=== PATIENT | male | born 1990 | race Caucasian/White ===

== ENCOUNTER 2020-10-19 12:26 | Inpatient (IN) | payer OTHER, SELFPAY ==
[2020-10-19 12:31] VITALS: BP 144/80; PULSE 82; RESP 18; TEMP 36.6; O2SAT 97; BMI 27.8
[2020-10-19 15:03] LABS: MANUAL DIFF FLAG NO
[2020-10-19 15:04] LABS: Basophils Absolute Auto 0.1 X10*3/uL (0.0-0.2); Basophils Percent Auto 0.4 % (0-2); Eosinophils Absolute Auto 0.1 X10*3/uL (0.0-0.4); Eosinophils Percent Auto 0.6 % (0-4); Hematocrit 48.9 % (42-52); Hemoglobin 16.2 g/dl (14.0-18.0); Imm Gran Abs Auto 0.05 X10*3/uL (0.00-0.03); Imm Gran Pct Auto 0.4 % (0.0-0.4); Lymphocytes Absolute Auto 1.6 X10*3/uL (1.2-4.9); Lymphocytes Percent Auto 13.5 % (20-40); Mean Corpuscular HGB Conc 33.1 g/dl (31.0-36.0); Mean Corpuscular Volume 87.6 fL (80-98); Mean Platelet Volume 9.8 fL (9.4-12.4); Monocytes Absolute Auto 0.6 X10*3/uL (0.1-1.2); Monocytes Percent Auto 5.3 % (2-11); Neutrophils Absolute Auto 9.4 X10*3/uL (2.0-8.3); Neutrophils Percent Auto 79.8 % (45-73); Platelet Count 283 X10*3/uL (160-400); Red Blood Count 5.58 X10*6/uL (4.60-5.80); Red Cell Distribution Width 12.2 % (11.0-16.0); White Blood Count 11.7 X10*3/uL (4.8-10.8)
[2020-10-19 15:08] LABS: Glucose Urine UA NEG (NEG); Leukocyte Esterase Urine NEG (NEG); Nitrite Urine NEG (NEG); Specific Gravity - Urine 1.025 (1.005-1.025); Urine Blood NEG (NEG); Urine Ketones 5 MG/DL (NEG); Urine Protein NEG (NEG-TRACE)
[2020-10-19 15:09] LABS: Appearance Urine CLEAR; Color Urine YELLOW
[2020-10-19 15:20] LABS: RBC Urine 0 /HPF (0); WBC Urine 0 /HPF (0-4)
--- NOTE | 2020-10-19 15:20 | PC.NURSE ---
CARE TEAM MEETING WITH PATIENT.
[2020-10-19 15:29] LABS: Ethanol < 10 mg/dL
[2020-10-19 15:32] LABS: Magnesium 2.2 mg/dL (1.6-2.6)
[2020-10-19 15:33] LABS: Alanine Aminotransferase 25 U/L (0-40); Albumin Level 4.7 g/dL (3.5-5.0); Alkaline Phosphatase 77 U/L (39-117); Anion Gap 15 (12-20); Aspartate Amino Transferase 17 U/L (5-37); Bilirubin Total 2.1 mg/dL (0.0-1.0); Blood Urea Nitrogen 15 mg/dL (9-16); Calcium 9.5 mg/dL (8.4-10.2); Carbon Dioxide 24 mmol/L (22-29); Chloride 105 mmol/L (96-108); Creatinine Clr Calc Pharmacy 121.8; Estimated Glomerular Filt Rate > 60; Glucose Random 91 mg/dL (60-115); Potassium 4.2 mmol/L (3.3-5.1); Sodium 140 mmol/L (135-145); Total Protein 7.2 g/dL (6.5-8.0)
[2020-10-19 15:34] LABS: Amphetamine Screen Urine Not Detected (Not Detect); Barbiturates, Urine Not Detected (Not Detect); Benzodiazepines Screen Urine Not Detected (Not Detect); Cannabinoid Screen Urine Not Detected (Not Detect); Cocaine Screen Urine Not Detected (Not Detect); Opiate Screen Urine Not Detected (Not Detect); Phencyclidine Screen Urine Not Detected (Not Detect)
[2020-10-19 15:54] LABS: Thyroid Stimulating Hormone 0.55 uIU/mL (0.32-4.0)
--- NOTE | 2020-10-19 17:21 | PC.NURSE ---
PT ambulated to pod with steady gait, calm and cooperative, pleasant in conversation. PT is inpatient bedsearch.
--- NOTE | 2020-10-19 17:26 | ED_ITS ---
HPI - Anxiety General Chief Complaint: Anxiety Stated Complaint: anxiety Time Seen by Provider: 10/19/20 14:34 Source: patient Mode of arrival: ambulatory Limitations: no limitations History of Present Illness HPI narrative: Pleasant 30-year-old male presenting ambulatory via triage with his mother He denies any past medical or surgical history Denies any psychiatric history Denies any illicit drug use Denies any alcohol or smoking He presents today with complaint of having a racing thoughts feeling anxious and having impulsive suicidal ideations States he has been having hard time sleeping he will wake up with panic attacks States he has high functional 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 States he subsequently went to [facility] he was in the waiting room due to long wait time he would therefore +hours but he left Yesterday called his primary care doctor had a tele visit the through [facility] He was prescribed hydroxyzine 10 mg for bedtime States this helped a little made him sleepy however his symptoms of panic attacks and thoughts of SI continued. States he is only concerned because he has never had these symptoms before Familial history of uncle with bipolar however father and grandparents do not have any history There is history of thyroid disease in the family He himself denies any weight loss or weight gain no changes in appetite though he does feel that he is drinking slightly more water for past 4 days or so. complaint: anxiety Place: home History of similar episodes: No Provoking factors: emotional stress and work/job stress Exacerbating factors: nothing Associated symptoms: denies other symptoms Related Data Home Medications Medication Instructions Recorded Confirmed hydroxyzine HCl 1 tab PO BEDTIME 10/19/20 10/19/20 Allergies Allergy/AdvReac Type Severity Reaction Status Date / Time No Known Allergies Allergy Verified 10/19/20 14:34 Review of Systems Review of Systems: Constitutional: No Weight loss, No Fever, No Chills, No Night Sweats, No Fatigue, No Malaise ENT/Mouth: No Hearing loss, No Ear Pain, No Nasal Congestion, No Sinus Pain, No Hoarseness, No sore throat, No Rhinorrhea, No Swallowing Difficulty Eyes: No Eye Pain, No Swelling, No Redness, No Foreign Body, No Discharge, No Vision Changes Cardiovascular: No Chest Pain, No SOB, No Dyspnea on Exertion, No Orthopnea, No Edema, No Palpitations Respiratory: No Cough, No Sputum, No Wheezing, No Smoke Exposure, No Dyspnea Gastrointestinal: No Nausea, No Vomiting, No Diarrhea, No Constipation, No abdominal Pain, No Hematochezia, No Melena Genitourinary: no irregular bleeding, No Dysuria, No Urinary Frequency, No Hematuria, No Urinary Incontinence, No Urgency, No Flank Pain, No Urinary Flow Changes, No Hesitancy Musculoskeletal: No joint pain, No Myalgias, No Joint Swelling Skin: No Skin Lesions, No rash Neuro: No Weakness, No Numbness, No Paresthesias, No Loss of Consciousness, No Dizziness, No Headache Psych: As noted per HPI Heme/Lymph: No Bruising, No Bleeding,No Lymphadenopathy Endocrine: No Polyuria, No Polydipsia, No Temperature Intolerance Yes all other systems are reviewed and are negative [facility] Social History Social History Advance Directives: No Physical Exam Vital Signs: Vital Signs: Last Vital Signs Temp 97.9 F 10/19/20 12:31 Pulse 82 10/19/20 12:31 Resp 18 10/19/20 12:31 BP 144/80 H 10/19/20 12:31 Pulse Ox 97 10/19/20 12:31 Body Mass Index 27.8 Reviewed Const: General: cooperative, healthy appearing and anxious; No intoxicated appearing Nutritional Appearance: average body habitus Orientation/consciousness: patient oriented x3 HENMT: Head: Yes normal to inspection Ears: hearing grossly normal bilaterally Eyes: General: appearance normal, both eyes and all related structures Visual Metz: normal visual metz by confrontation Neck: Neck: Yes normal visual inspection, No positive Brudzinski's sign, No positive Kernig's sign and No tender Thyroid: Thyroid normal Chest: Chest palpation & inspection: normal inspection of the chest Resp: Effort & Inspection: normal respiratory effort Auscultation: clear to auscultation bilaterally Cardio: Jugular venous distension: no JVD Rhythm: regular rhythm Heart sounds: S1 normal heart sound present and S2 normal heart sound present GI: Inspection: Yes normal to inspection Palpation (GI): Soft to palpation Percussion: Yes normal to percussion Auscultation: normal bowel sounds : General: Yes no CVA tenderness Back/Spine/Pelvis: Back: no CVA tenderness Skin: General skin exam: no rashes or lesions noted Neuro: General: patient oriented x3 Extrem: General: Yes normal to inspection Course Reevaluation(s) Reevaluation #1: 1500 Pleasant 30-year-old female high functioning, independent prior psychiatric or medical or surgical history presenting with feeling of anxiety/panic attacks or past 4 days also intrusive thoughts of SI by way of cutting himself this is highly unusual for him and out of concern that came to the emergency room has sought help through the primary care as well. He states currently he will have feelings of SI that come and go and feeling overwhelmed and anxious. Will check medical screening labs including thyroid function test toxicity study however he denies any illicit drug use. Will consult care team for evaluation and input. Reevaluation #2: 1615 Labs overall stable sodium within normal limits BUN creatinine stable, TSH within normal limits. U tox negative, ethanol negative. Patient medically clear this time for psychiatric evaluation by care team who is at bedside for evaluation. Consultations Consultation #1: [id number] Evaluated Care team recommendation for inpatient level of care. Plan reviewed with patient and mother agreeable. Patient at this time placing physician observation require more time for placement. VSS, NAD, PWD. MDM - Anxiety Lab Data Result diagrams: 10/19/20 14:51 10/19/20 14:51 Labs: Lab Results 10/19/20 10/19/20 10/19/20 Range/Units 14:50 14:50 14:51 WBC 11.7 H (4.8-10.8) X10*3/uL RBC 5.58 (4.60-5.80) X10*6/uL Hgb 16.2 (14.0-18.0) g/dl Hct 48.9 (42-52) % MCV 87.6 (80-98) fL MCH 29.0 (27.0-33.0) pg MCHC 33.1 (31.0-36.0) g/dl RDW 12.2 (11.0-16.0) % Plt Count 283 (160-400) X10*3/uL MPV 9.8 (9.4-12.4) fL Immature Gran % (Auto) 0.4 (0.0-0.4) % Neut % (Auto) 79.8 H (45-73) % Lymph % (Auto) 13.5 L (20-40) % [place] % (Auto) 5.3 (2-11) % Eos % (Auto) 0.6 (0-4) % Baso % (Auto) 0.4 (0-2) % Lymph # (Auto) 1.6 (1.2-4.9) X10*3/uL [place] # (Auto) 0.6 (0.1-1.2) X10*3/uL Eos # (Auto) 0.1 (0.0-0.4) X10*3/uL Baso # (Auto) 0.1 (0.0-0.2) X10*3/uL Abs Immat Gran (auto) 0.05 H (0.00-0.03) X10*3/uL Absolute Neuts (auto) 9.4 H (2.0-8.3) X10*3/uL Absolute Nucleated RBC 0.000 (0.0-0.012) X10*3/uL Nucleated RBC % (auto) 0.0 (0.0-0.2) /100WBC Sodium (135-145) mmol/L Potassium (3.3-5.1) mmol/L Chloride (96-108) mmol/L Carbon Dioxide (22-29) mmol/L Anion Gap (12-20) BUN (9-16) mg/dL Creatinine (0.5-1.4) mg/dL Estim Creat Clear Calc Estimated GFR Random Glucose (60-115) mg/dL Calcium (8.4-10.2) mg/dL Magnesium (1.6-2.6) mg/dL Total Bilirubin (0.0-1.0) mg/dL AST (5-37) U/L ALT (0-40) U/L Alkaline Phosphatase (39-117) U/L Total Protein (6.5-8.0) g/dL Albumin (3.5-5.0) g/dL TSH (0.32-4.0) uIU/mL Urine Color YELLOW Urine Appearance CLEAR Urine pH 6.0 (5.0-8.0) Ur Specific [place] 1.025 (1.005-1.025) Urine Protein NEG (NEG-TRACE) MG/DL Urine Glucose (UA) NEG (NEG) MG/DL Urine Ketones 5 (NEG) MG/DL Urine Blood NEG (NEG) Urine Nitrite NEG (NEG) Ur Leukocyte Esterase NEG (NEG) Urine RBC 0 (0) /HPF Urine WBC 0 (0-4) /HPF Ur Squamous Epith Cells NONE /LPF Urine Bacteria NONE /LPF Urine Opiates Screen Not Detected (Not Detect) Ur Barbiturates Screen Not Detected (Not Detect) Ur Phencyclidine Scrn Not Detected (Not Detect) Ur Amphetamines Screen Not Detected (Not Detect) U Benzodiazepines Scrn Not Detected (Not Detect) Urine Cocaine Screen Not Detected (Not Detect) U Marijuana (THC) Screen Not Detected (Not Detect) Ethyl Alcohol mg/dL 10/19/20 10/19/20 10/19/20 Range/Units 14:51 14:51 14:51 WBC (4.8-10.8) X10*3/uL RBC (4.60-5.80) X10*6/uL Hgb (14.0-18.0) g/dl Hct (42-52) % MCV (80-98) fL MCH (27.0-33.0) pg MCHC (31.0-36.0) g/dl RDW (11.0-16.0) % Plt Count (160-400) X10*3/uL MPV (9.4-12.4) fL Immature Gran % (Auto) (0.0-0.4) % Neut % (Auto) (45-73) % Lymph % (Auto) (20-40) % [place] % (Auto) (2-11) % Eos % (Auto) (0-4) % Baso % (Auto) (0-2) % Lymph # (Auto) (1.2-4.9) X10*3/uL [place] # (Auto) (0.1-1.2) X10*3/uL Eos # (Auto) (0.0-0.4) X10*3/uL Baso # (Auto) (0.0-0.2) X10*3/uL Abs Immat Gran (auto) (0.00-0.03) X10*3/uL Absolute Neuts (auto) (2.0-8.3) X10*3/uL Absolute Nucleated RBC (0.0-0.012) X10*3/uL Nucleated RBC % (auto) (0.0-0.2) /100WBC Sodium 140 (135-145) mmol/L Potassium 4.2 (3.3-5.1) mmol/L Chloride 105 (96-108) mmol/L Carbon Dioxide 24 (22-29) mmol/L Anion Gap 15 (12-20) BUN 15 (9-16) mg/dL Creatinine 1.04 (0.5-1.4) mg/dL Estim Creat Clear Calc 121.8 Estimated GFR > 60 Random Glucose 91 (60-115) mg/dL Calcium 9.5 (8.4-10.2) mg/dL Magnesium 2.2 (1.6-2.6) mg/dL Total Bilirubin 2.1 H (0.0-1.0) mg/dL AST 17 (5-37) U/L ALT 25 (0-40) U/L Alkaline Phosphatase 77 (39-117) U/L Total Protein 7.2 (6.5-8.0) g/dL Albumin 4.7 (3.5-5.0) g/dL TSH 0.55 (0.32-4.0) uIU/mL Urine Color Urine Appearance Urine pH (5.0-8.0) Ur Specific [place] (1.005-1.025) Urine Protein (NEG-TRACE) MG/DL Urine Glucose (UA) (NEG) MG/DL Urine Ketones (NEG) MG/DL Urine Blood (NEG) Urine Nitrite (NEG) Ur Leukocyte Esterase (NEG) Urine RBC (0) /HPF Urine WBC (0-4) /HPF Ur Squamous Epith Cells /LPF Urine Bacteria /LPF Urine Opiates Screen (Not Detect) Ur Barbiturates Screen (Not Detect) Ur Phencyclidine Scrn (Not Detect) Ur Amphetamines Screen (Not Detect) U Benzodiazepines Scrn (Not Detect) Urine Cocaine Screen (Not Detect) U Marijuana (THC) Screen (Not Detect) Ethyl Alcohol < 10 mg/dL Discharge Plan Discharge Clinical Impression: Acute anxiety, Suicidal ideation Patient Disposition: Admitted As Inpatient Prescriptions: No Action hydroxyzine HCl 10 mg tablet 1 tab PO BEDTIME RF: 0
--- NOTE | 2020-10-19 17:31 | MHC.CARE ---
CARE team consult requested for pt who self presented to ED endorsing new onset of intense sense of anxiety, episodes of panic, and dark thoughts that have led pt to not feeling safe being alone. Pt endorsed experiencing thoughts of shooting himself, denied have any plan or intent to do so, and has no history of such. Pt reported that he doesn't feel that he's able to work at this time and is greatly concerned that these current symptoms will be the way he is from now on. Consultation transitioned into a full level of care evaluation, with plan for inpt psych admission. ED provider is in agreement with plan.
--- NOTE | 2020-10-19 19:04 | PC.NURSE ---
Report received. PT is watching TV in the common area. Calm and cooperative. PT is inpatient bed search.
[2020-10-19] MEDS: hydrOXYzine HCL 10 MG TABLET PO (20:39)
--- NOTE | 2020-10-20 05:00 | PC.ADMIT ---
Patient is a 30 yo single male admitted from [facility] ED to M5 at 22:50 as a CV with a dx of anxiety disorder. Pt self-presented to ED with his mother after experiencing anxiety, panic episodes, poor sleep, and loss of appetite. Pt began experiencing dark thoughts about shooting himself on 10/17/20. Pt does have access to [employer]. Reported not feeling safe alone and has been staying with parents for past two nights per crisis report. Reports disturbed sleep r/t waking up and feeling that his heart has stopped. Per crisis assessment, pt denied hx of self harm or suicidality. Describes thoughts of shooting himself as intrusive thoughts and denies intent per crisis assessment. No hx of IPLOC related to behavioral health and no prior hx of anxiety or depression. Pt does not currently have a therapist or prescriber. 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 PMH includes asthma and PVCs. Pt admitted on previous shift and currently asleep. On-call provider notified and pt placed on 5 min safety checks.
[2020-10-20 06:20] VITALS: BP 116/59; PULSE 67; RESP 18; TEMP 36.7; O2SAT 97
[2020-10-20] MEDS: Escitalopram Oxalate 5 MG TABLET PO (14:28)
--- NOTE | 2020-10-20 15:14 | P.HPPS_ITS ---
HPI Chief Complaint: anxiety disorder Sources of Information: patient interviewed, chart reviewed and crisis/core team assessment reviewed Additional Sources of Information: mother present during interview HPI Subjective Notes: Conditional Voluntary Narrative: Mr. Porter is a 30 year-old male with hx of MDD for past year who was brought to [facility] ED by mother on 10/18/2020 after he disclose suicidal ideation with plan to shoot himself with holli that he owns. This is his first inpatient admission. In ED, his utox was negative. Laboratory data CBC, CMP, unremarkable. On the unit, pt presents as tearful, anxious. He reports that depression and anxiety worsened after he ended relationship of 4 years about one and half years ago. He reports it was a mutual decision but his life drastically change to more social isolation. 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 He reports feeling anxious, depressed, empty, loss in life, unclear of his purpose. He ruminates about not being in a serious relationship and ideas of having a family by now. He describes difficulty falling asleep. Waking up with palpitations and fear of dying. 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 He reports he notes low frustration tolerance and last Monday lashing out at father, which is not his usual nor a reflection of their relationship. He reported going home, feeling void in his chest. He talked with his sister who suggested he was very anxious and overwhelmed. He reported that something clicked and he couldn't hold it anymore. He reports he went to his parents house. He had flitting thoughts of suicide but adamantly denies intent but knew he needed help. He has never been on medications nor in psychiatric treatment. Past Psychiatric History: Inpatient: none OP: none Past medication trials: none Suicide attempts: none Medical Evaluation Reviewed: Yes Diagnostics Vital Signs (24Hr): Vital Signs - 24 hr 10/20/20 06:20 Temperature 98.1 F Pulse Rate 67 Respiratory Rate 18 Blood Pressure 116/59 L Pulse Oximetry 97 Body Mass Index 27.8 Labs Results: 10/19/20 14:51 10/19/20 14:51 Labs: Laboratory Results - last 48 hr 10/19/20 10/19/20 10/19/20 14:50 14:50 14:51 WBC 11.7 H RBC 5.58 Hgb 16.2 Hct 48.9 MCV 87.6 MCH 29.0 MCHC 33.1 RDW 12.2 Plt Count 283 MPV 9.8 Immature Gran % (Auto) 0.4 Neut % (Auto) 79.8 H Lymph % (Auto) 13.5 L [place] % (Auto) 5.3 Eos % (Auto) 0.6 Baso % (Auto) 0.4 Lymph # (Auto) 1.6 [place] # (Auto) 0.6 Eos # (Auto) 0.1 Baso # (Auto) 0.1 Abs Immat Gran (auto) 0.05 H Absolute Neuts (auto) 9.4 H Absolute Nucleated RBC 0.000 Nucleated RBC % (auto) 0.0 Sodium Potassium Chloride Carbon Dioxide Anion Gap BUN Creatinine Estim Creat Clear Calc Estimated GFR Random Glucose Calcium Magnesium Total Bilirubin AST ALT Alkaline Phosphatase Total Protein Albumin TSH Urine Color YELLOW Urine Appearance CLEAR Urine pH 6.0 Ur Specific [place] 1.025 Urine Protein NEG Urine Glucose (UA) NEG Urine Ketones 5 Urine Blood NEG Urine Nitrite NEG Ur Leukocyte Esterase NEG Urine RBC 0 Urine WBC 0 Ur Squamous Epith Cells NONE Urine Bacteria NONE Urine Opiates Screen Not Detected Ur Barbiturates Screen Not Detected Ur Phencyclidine Scrn Not Detected Ur Amphetamines Screen Not Detected U Benzodiazepines Scrn Not Detected Urine Cocaine Screen Not Detected U Marijuana (THC) Screen Not Detected Ethyl Alcohol 10/19/20 10/19/20 10/19/20 14:51 14:51 14:51 WBC RBC Hgb Hct MCV MCH MCHC RDW Plt Count MPV Immature Gran % (Auto) Neut % (Auto) Lymph % (Auto) [place] % (Auto) Eos % (Auto) Baso % (Auto) Lymph # (Auto) [place] # (Auto) Eos # (Auto) Baso # (Auto) Abs Immat Gran (auto) Absolute Neuts (auto) Absolute Nucleated RBC Nucleated RBC % (auto) Sodium 140 Potassium 4.2 Chloride 105 Carbon Dioxide 24 Anion Gap 15 BUN 15 Creatinine 1.04 Estim Creat Clear Calc 121.8 Estimated GFR > 60 Random Glucose 91 Calcium 9.5 Magnesium 2.2 Total Bilirubin 2.1 H AST 17 ALT 25 Alkaline Phosphatase 77 Total Protein 7.2 Albumin 4.7 TSH 0.55 Urine Color Urine Appearance Urine pH Ur Specific [place] Urine Protein Urine Glucose (UA) Urine Ketones Urine Blood Urine Nitrite Ur Leukocyte Esterase Urine RBC Urine WBC Ur Squamous Epith Cells Urine Bacteria Urine Opiates Screen Ur Barbiturates Screen Ur Phencyclidine Scrn Ur Amphetamines Screen U Benzodiazepines Scrn Urine Cocaine Screen U Marijuana (THC) Screen Ethyl Alcohol < 10 Meds/Allergies Meds Home Medications Acetaminophen (Acetaminophen 325 Mg Tablet) 650 mg PO Q6H PRN PRN Reason: Headache/Pain Mild Scale (1-3) Al Hydroxide/Mg Hydroxide (Magnesium Hydrox/Alum Hydrox 30 Ml Oral.Susp) 30 ml PO Q6H PRN PRN Reason: Heartburn/Nausea Clonazepam (Clonazepam 0.5 Mg Tablet) 0.5 mg PO BEDTIME ARRON Clonazepam (Clonazepam 0.5 Mg Tablet) 0.5 mg PO Q6H PRN PRN Reason: Anxiety Escitalopram Oxalate (Escitalopram Oxalate 5 Mg Tablet) 5 mg PO DAILY [facility] Last Admin: 10/20/20 14:28 Dose: 5 mg Documented by: Hydroxyzine HCl (Hydroxyzine Hcl 25 Mg Tablet) 25 mg PO Q6H PRN PRN Reason: anxiety/sleep Magnesium Hydroxide (Milk Of Magnesia 30 Ml Oral.Susp) 30 ml PO DAILY PRN PRN Reason: Constipation Trazodone HCl (Trazodone Hcl 50 Mg Tablet) 50 mg PO BEDTIME PRN PRN Reason: Insomnia Allergies Allergies Allergy/AdvReac Type Severity Reaction Status Date / Time No Known Allergies Allergy Verified 10/19/20 14:34 Mental Status Exam Mental Status Exam Narrative: Appearance: casually groomed, fair hygiene, in NAD Behavior: calm, cooperative Psychomotor: no agitation or retardation noted Speech: clear, normal rate/rhythm/volume, spontaneous TP: linear TC: no signs of psychosis, feeling lonely, empty Mood: depressed Affect:tearful, anxious SI:passive HI:none AH/VH:none Delusions:none Insight/judgment:intact x 2. Memory/cog: alert, oriented x 3. grossly intact to conversational testing. Assessment & Plan Assessment & Plan (1) MDD (major depressive disorder), single episode, moderate: Status: Acute Code(s): F32.1 - Major depressive disorder, single episode, moderate Assessment and Plan: start lexapro 5mg po daily, will titrate start clonazepam 0.5mg po BID Reason for continued inpatient stay Substantial Risk for: harm to self
[2020-10-20 19:00] VITALS: BP 123/67; PULSE 94; TEMP 37.2
[2020-10-20] MEDS: clonazePAM 0.5 MG TABLET PO (20:32)
[2020-10-21 06:20] VITALS: BP 115/62; PULSE 63; RESP 16; TEMP 36.9; O2SAT 97
[2020-10-21 08:45] LABS: Cholesterol 177 mg/dL; HDL Cholesterol 59 mg/dL; LDL Cholesterol Calculated 106 mg/dl; Triglycerides 63 mg/dL
[2020-10-21] MEDS: Escitalopram Oxalate 5 MG TABLET PO (08:52)
[2020-10-21 09:09] LABS: TSH reflex Free T4 1.22 uIU/mL (0.32-4.0)
[2020-10-21 09:27] LABS: Estimated Average Glucose 94 mg/dL; Hemoglobin A1c % 4.9 %
[2020-10-21 10:14] LABS: Folate 13.2 ng/mL (> or = 4.0); Vitamin B12 515 pg/mL (200-900)
[2020-10-21] MEDS: clonazePAM 0.5 MG TABLET PO ×2 (11:48→20:41)
--- NOTE | 2020-10-21 15:20 | HO.PSYCHPN ---
Subjective Subjective Date of Service: 10/21/20 Reason For Visit: anxiety disorder Subjective Notes: Conditional Voluntary Interim History: Niall reports that he is sleeping better. He reports feeling less overwhelmed although worried if he will ever feel better. He denies SI/HI. He continues to endorse depressed mood, anhedonia. He agrees to OP psychiatric referrals. He reports its hard to be in unit, seeing so many acute peers. He has been visible in the unit, attends some groups. No behavioral concerns. He started lexapro yesterday, no side effects. Medication Compliance: Yes Side effects from medications: No Attending Groups: Yes Review of Systems Review of Systems Constitutional: No Weight loss, No Fever, No Chills, No Night Sweats, No Fatigue, No Malaise ENT/Mouth: No Hearing loss, No Ear Pain, No Nasal Congestion, No Sinus Pain, No Hoarseness, No sore throat, No Rhinorrhea, No Swallowing Difficulty Eyes: No Eye Pain, No Swelling, No Redness, No Foreign Body, No Discharge, No Vision Changes Cardiovascular: No Chest Pain, No SOB, No Dyspnea on Exertion, No Orthopnea, No Edema, No Palpitations Respiratory: No Cough, No Sputum, No Wheezing, No Smoke Exposure, No Dyspnea Gastrointestinal: No Nausea, No Vomiting, No Diarrhea, No Constipation, No abdominal Pain, No Hematochezia, No Melena Genitourinary: no irregular bleeding, No Dysuria, No Urinary Frequency, No Hematuria, No Urinary Incontinence, No Urgency, No Flank Pain, No Urinary Flow Changes, No Hesitancy Musculoskeletal: No joint pain, No Myalgias, No Joint Swelling Skin: No Skin Lesions, No rash Neuro: No Weakness, No Numbness, No Paresthesias, No Loss of Consciousness, No Dizziness, No Headache Psych: As noted per HPI Heme/Lymph: No Bruising, No Bleeding,No Lymphadenopathy Endocrine: No Polyuria, No Polydipsia, No Temperature Intolerance Yes all other systems are reviewed and are negative Constitutional: Reports anorexia and Reports lethargy Cardiovascular: Denies chest pain, Denies rapid heart rate and Denies dyspnea Respiratory: Denies dyspnea Musculoskeletal: Denies myalgias Mental Status Exam Mental Status Exam Narrative: Appearance: casually groomed, fair hygiene, in NAD Behavior: calm, cooperative Psychomotor: no agitation or retardation noted Speech: clear, normal rate/rhythm/volume, spontaneous TP: linear TC: no signs of psychosis, feeling lonely, empty Mood: depressed Affect:tearful, anxious SI:passive HI:none AH/VH:none Delusions:none Insight/judgment:intact x 2. Memory/cog: alert, oriented x 3. grossly intact to conversational testing. Diagnostics Vital Signs (24Hr): Vital Signs - 24 hr 10/20/20 19:00 10/21/20 06:20 Temperature 98.9 F 98.5 F Pulse Rate 94 63 Respiratory Rate 16 Blood Pressure 123/67 115/62 Pulse Oximetry 97 Body Mass Index 27.8 Labs Results: 10/19/20 14:51 10/19/20 14:51 Labs: Laboratory Results - last 48 hr 10/19/20 10/19/20 10/19/20 14:50 14:50 14:51 Sodium 140 Potassium 4.2 Chloride 105 Carbon Dioxide 24 Anion Gap 15 BUN 15 Creatinine 1.04 Estim Creat Clear Calc 121.8 Estimated GFR > 60 Random Glucose 91 Estimat Average Glucose Hemoglobin A1c % Calcium 9.5 Magnesium Total Bilirubin 2.1 H AST 17 ALT 25 Alkaline Phosphatase 77 Total Protein 7.2 Albumin 4.7 Triglycerides Cholesterol LDL Cholesterol, Calc HDL Cholesterol Vitamin B12 Folate TSH 0.55 Urine RBC 0 Urine WBC 0 Ur Squamous Epith Cells NONE Urine Bacteria NONE Urine Opiates Screen Not Detected Ur Barbiturates Screen Not Detected Ur Phencyclidine Scrn Not Detected Ur Amphetamines Screen Not Detected U Benzodiazepines Scrn Not Detected Urine Cocaine Screen Not Detected U Marijuana (THC) Screen Not Detected Ethyl Alcohol 10/19/20 10/19/20 10/21/20 14:51 14:51 07:48 Sodium Potassium Chloride Carbon Dioxide Anion Gap BUN Creatinine Estim Creat Clear Calc Estimated GFR Random Glucose Estimat Average Glucose Hemoglobin A1c % Calcium Magnesium 2.2 Total Bilirubin AST ALT Alkaline Phosphatase Total Protein Albumin Triglycerides Cholesterol LDL Cholesterol, Calc HDL Cholesterol Vitamin B12 515 Folate 13.2 TSH Urine RBC Urine WBC Ur Squamous Epith Cells Urine Bacteria Urine Opiates Screen Ur Barbiturates Screen Ur Phencyclidine Scrn Ur Amphetamines Screen U Benzodiazepines Scrn Urine Cocaine Screen U Marijuana (THC) Screen Ethyl Alcohol < 10 10/21/20 10/21/20 10/21/20 07:48 07:48 07:48 Sodium Potassium Chloride Carbon Dioxide Anion Gap BUN Creatinine Estim Creat Clear Calc Estimated GFR Random Glucose Estimat Average Glucose 94 Hemoglobin A1c % 4.9 Calcium Magnesium Total Bilirubin AST ALT Alkaline Phosphatase Total Protein Albumin Triglycerides 63 Cholesterol 177 LDL Cholesterol, Calc 106 HDL Cholesterol 59 Vitamin B12 Folate TSH 1.22 Urine RBC Urine WBC Ur Squamous Epith Cells Urine Bacteria Urine Opiates Screen Ur Barbiturates Screen Ur Phencyclidine Scrn Ur Amphetamines Screen U Benzodiazepines Scrn Urine Cocaine Screen U Marijuana (THC) Screen Ethyl Alcohol Medications Medications Current Medications Generic Name Dose Route Start Last Admin Trade Name Freq PRN Reason Stop Dose Admin Acetaminophen 650 mg 10/19/20 22:26 Acetaminophen 325 Mg Tablet PO Q6H PRN Headache/Pain Mild Scale (1-3) Al Hydroxide/Mg Hydroxide 30 ml 10/19/20 22:26 Magnesium Hydrox/Alum Hydrox 30 Ml Oral.Susp PO Q6H PRN Heartburn/Nausea Clonazepam 0.5 mg 10/20/20 21:00 10/20/20 20:32 Clonazepam 0.5 Mg Tablet PO 0.5 mg BEDTIME ARRON Administration Clonazepam 0.5 mg 10/20/20 13:42 10/21/20 11:48 Clonazepam 0.5 Mg Tablet PO 0.5 mg Q6H PRN Administration Anxiety Escitalopram Oxalate 5 mg 10/20/20 14:00 10/21/20 08:52 Escitalopram Oxalate 5 Mg Tablet PO 5 mg DAILY ARRON Administration Hydroxyzine HCl 25 mg 10/20/20 13:44 Hydroxyzine Hcl 25 Mg Tablet PO Q6H PRN anxiety/sleep Magnesium Hydroxide 30 ml 10/19/20 22:26 Milk Of Magnesia 30 Ml Oral.Susp PO DAILY PRN Constipation Trazodone HCl 50 mg 10/19/20 22:26 Trazodone Hcl 50 Mg Tablet PO BEDTIME PRN Insomnia Allergies Allergies Allergy/AdvReac Type Severity Reaction Status Date / Time No Known Allergies Allergy Verified 10/19/20 14:34 Assessment & Plan Assessment & Plan (1) MDD (major depressive disorder), single episode, moderate: Status: Acute Code(s): F32.1 - Major depressive disorder, single episode, moderate Assessment and Plan: Increase lexapro 10mg po daily continue clonazepam 0.5mg po BID Parents retrieved riffles from pt's home. Greater than 50% of the session was spent on counseling and/or coordination of care Reason for contiued inpatient stay Substantial Risk for: harm to self
[2020-10-21 18:00] VITALS: BP 138/71; PULSE 102; TEMP 36.9
[2020-10-22 06:00] VITALS: BP 123/59; PULSE 77; RESP 16; TEMP 36.1; O2SAT 97
[2020-10-22 07:00] VITALS: BMI 28.0
[2020-10-22] MEDS: Escitalopram Oxalate 10 MG TABLET PO (08:52)
[2020-10-22] MEDS: clonazePAM 0.5 MG TABLET PO ×3 (09:34→20:26)
--- NOTE | 2020-10-22 12:04 | P.PNPSI_ITS ---
Subjective Subjective Date of Service: 10/23/20 Reason For Visit: anxiety disorder Interim History: Niall reports that he feels much less depressed and more hopeful about his future. He reports sleeping better. He reports decreased anxiety. He denies SI/HI. He has been taking clonazepam BID which he reports its helpful. He has been visible in the unit. No side effects reported. Review of Systems Review of Systems Constitutional: No Weight loss, No Fever, No Chills, No Night Sweats, No Fatigue, No Malaise ENT/Mouth: No Hearing loss, No Ear Pain, No Nasal Congestion, No Sinus Pain, No Hoarseness, No sore throat, No Rhinorrhea, No Swallowing Difficulty Eyes: No Eye Pain, No Swelling, No Redness, No Foreign Body, No Discharge, No Vision Changes Cardiovascular: No Chest Pain, No SOB, No Dyspnea on Exertion, No Orthopnea, No Edema, No Palpitations Respiratory: No Cough, No Sputum, No Wheezing, No Smoke Exposure, No Dyspnea Gastrointestinal: No Nausea, No Vomiting, No Diarrhea, No Constipation, No abd ominal Pain, No Hematochezia, No Melena Genitourinary: no irregular bleeding, No Dysuria, No Urinary Frequency, No Hematuria, No Urinary Incontinence, No Urgency, No Flank Pain, No Urinary Flow Changes, No Hesitancy Musculoskeletal: No joint pain, No Myalgias, No Joint Swelling Skin: No Skin Lesions, No rash Neuro: No Weakness, No Numbness, No Paresthesias, No Loss of Consciousness, No Dizziness, No Headache Psych: As noted per HPI Heme/Lymph: No Bruising, No Bleeding,No Lymphadenopathy Endocrine: No Polyuria, No Polydipsia, No Temperature Intolerance Yes all other systems are reviewed and are negative Constitutional: Reports anorexia and Reports lethargy Cardiovascular: Denies chest pain, Denies rapid heart rate and Denies dyspnea Respiratory: Denies dyspnea Musculoskeletal: Denies myalgias Mental Status Exam Mental Status Exam Narrative: Appearance: casually groomed, fair hygiene, in NAD Behavior: calm, cooperative Psychomotor: no agitation or retardation noted Speech: clear, normal rate/rhythm/volume, spontaneous TP: linear TC: no signs of psychosis, feeling lonely, empty Mood: depressed Affect:tearful, anxious SI:passive HI:none AH/VH:none Delusions:none Insight/judgment:intact x 2. Memory/cog: alert, oriented x 3. grossly intact to conversational testing. Diagnostics Vital Signs (24Hr): Vital Signs - 24 hr 10/22/20 18:00 10/23/20 06:00 Temperature 98.3 F 98.2 F Pulse Rate 100 88 Respiratory Rate 16 Blood Pressure 137/69 125/58 L Pulse Oximetry 97 Body Mass Index 28.0 Labs Results: 10/19/20 14:51 10/19/20 14:51 Medications Medications Current Medications Generic Name Dose Route Start Last Admin Trade Name Freq PRN Reason Stop Dose Admin Acetaminophen 650 mg 10/19/20 22:26 Acetaminophen 325 Mg Tablet PO Q6H PRN Headache/Pain Mild Scale (1-3) Al Hydroxide/Mg Hydroxide 30 ml 10/19/20 22:26 Magnesium Hydrox/Alum Hydrox 30 Ml Oral.Susp PO Q6H PRN Heartburn/Nausea Clonazepam 0.5 mg 10/20/20 21:00 10/22/20 20:26 Clonazepam 0.5 Mg Tablet PO 0.5 mg BEDTIME ARRON Administration Clonazepam 0.5 mg 10/20/20 13:42 10/22/20 18:09 Clonazepam 0.5 Mg Tablet PO 0.5 mg Q6H PRN Administration Anxiety Escitalopram Oxalate 10 mg 10/22/20 09:00 10/23/20 08:31 Escitalopram Oxalate 10 Mg Tablet PO 10 mg DAILY ARRON Administration Hydroxyzine HCl 25 mg 10/20/20 13:44 Hydroxyzine Hcl 25 Mg Tablet PO Q6H PRN anxiety/sleep Magnesium Hydroxide 30 ml 10/19/20 22:26 Milk Of Magnesia 30 Ml Oral.Susp PO DAILY PRN Constipation Pat Own Med (Wixela 1 each 10/21/20 21:00 10/23/20 08:31 250/50) INHALE 1 each BID ARRON Administration Trazodone HCl 50 mg 10/19/20 22:26 Trazodone Hcl 50 Mg Tablet PO BEDTIME PRN Insomnia Allergies Allergies Allergy/AdvReac Type Severity Reaction Status Date / Time No Known Allergies Allergy Verified 10/19/20 14:34 Assessment & Plan Assessment & Plan (1) MDD (major depressive disorder), single episode, moderate: Status: Acute Code(s): F32.1 - Major depressive disorder, single episode, moderate Assessment and Plan: Increase lexapro 10mg po daily continue clonazepam 0.5mg po BID Parents retrieved riffles from pt's home. Greater than 50% of the session was spent on counseling and/or coordination of care Reason for contiued inpatient stay Substantial Risk for: stable for discharge
[2020-10-22 18:00] VITALS: BP 137/69; PULSE 100; TEMP 36.8
[2020-10-23 06:00] VITALS: BP 125/58; PULSE 88; RESP 16; TEMP 36.8; O2SAT 97
[2020-10-23] MEDS: Escitalopram Oxalate 10 MG TABLET PO (08:31)
--- NOTE | 2020-10-23 08:57 | P.DS_ITS ---
DS: Providers Provider Date of Service: 11/12/20 Date of admission: 10/19/20 22:26 Primary care physician: None Physician DS: Diagnosis Discharge Diagnosis (1) MDD (major depressive disorder), single episode, moderate: Status: Acute DS: Medications Discharge Medications Home Medications: Previous Rx's Medication Instructions Recorded clonazepam 0.5 mg PO BID PRN 15 Days #30 tab 10/23/20 escitalopram oxalate 10 mg PO DAILY 30 Days #30 tab 10/23/20 trazodone 50 mg PO BEDTIME PRN 30 Days #30 10/23/20 tab Discharge Plan Discharge Patient Disposition: Home, Self-Care Discharge Diagnosis: MDD, recurrent, moderate Referrals: JANET ROSAS [Other] - 11/03/20 3:00 pm CHUCKY WHYTE, THERAPIST [Other] - 10/26/20 5:00 pm Brittany Robles MD [Physician] - 11/05/20 10:30 am Discharge Medications: New trazodone 50 mg Tablet 50 mg PO BEDTIME PRN (Reason: Insomnia) 30 Days Qty: 30 RF: 0 clonazepam 0.5 mg Tablet 0.5 mg PO BID PRN (Reason: anxiety) 15 Days Qty: 30 RF: 0 escitalopram oxalate 10 mg Tablet 10 mg PO DAILY 30 Days Qty: 30 RF: 0 Discontinued hydroxyzine HCl 10 mg tablet 1 tab PO BEDTIME RF: 0 Discharge Orders: Discharge Order (Routine); Ordered 10/23/20 Ordered By: Melissa Pringle Diet: regular diet Activity on Discharge: As tolerated Stand Alone Forms: Patient Portal Discharge page, Community Support Care Plan Goals: Improve mood No SI/HI Improve sleep and appetite Health Concerns: follow up with PCP. No acute concerns. Plan of Treatment: 1. follow up with referrals 2. Take medications as prescribed. Assessment: stable Discharge Date/Time: 10/23/20 12:55 Mental Status Exam Mental Status Exam Narrative: Appearance: casually groomed, good hygiene, in NAD Behavior: calm, cooperative Psychomotor: no agitation or retardation noted Speech: clear, normal rate/rhythm/volume, spontaneous TP: linear TC: no signs of psychosis, future oriented Mood: better Affect:congruent, non labile SI:none HI:none AH/VH:none Delusions:none Insight/judgment:intact x 2. Memory/cog: alert, oriented x 3. grossly intact to conversational testing. Data Data Completed and Pending Completed studies during hospitalization [Text1]: 10/19/20 10/19/20 10/19/20 14:50 14:50 14:51 WBC 11.7 H RBC 5.58 Hgb 16.2 Hct 48.9 MCV 87.6 MCH 29.0 MCHC 33.1 RDW 12.2 Plt Count 283 MPV 9.8 Immature Gran % (Auto) 0.4 Neut % (Auto) 79.8 H Lymph % (Auto) 13.5 L Mccreary % (Auto) 5.3 Eos % (Auto) 0.6 Baso % (Auto) 0.4 Lymph # (Auto) 1.6 Mccreary # (Auto) 0.6 Eos # (Auto) 0.1 Baso # (Auto) 0.1 Abs Immat Gran (auto) 0.05 H Absolute Neuts (auto) 9.4 H Absolute Nucleated RBC 0.000 Nucleated RBC % (auto) 0.0 Sodium Potassium Chloride Carbon Dioxide Anion Gap BUN Creatinine Estim Creat Clear Calc Estimated GFR Random Glucose Estimat Average Glucose Hemoglobin A1c % Calcium Magnesium Total Bilirubin AST ALT Alkaline Phosphatase Total Protein Albumin Triglycerides Cholesterol LDL Cholesterol, Calc HDL Cholesterol Vitamin B12 Folate TSH Urine Color YELLOW Urine Appearance CLEAR Urine pH 6.0 Ur Specific Walters 1.025 Urine Protein NEG Urine Glucose (UA) NEG Urine Ketones 5 Urine Blood NEG Urine Nitrite NEG Ur Leukocyte Esterase NEG Urine RBC 0 Urine WBC 0 Ur Squamous Epith Cells NONE Urine Bacteria NONE Urine Opiates Screen Not Detected Ur Barbiturates Screen Not Detected Ur Phencyclidine Scrn Not Detected Ur Amphetamines Screen Not Detected U Benzodiazepines Scrn Not Detected Urine Cocaine Screen Not Detected U Marijuana (THC) Screen Not Detected Ethyl Alcohol 10/19/20 10/19/20 10/19/20 14:51 14:51 14:51 WBC RBC Hgb Hct MCV MCH MCHC RDW Plt Count MPV Immature Gran % (Auto) Neut % (Auto) Lymph % (Auto) Mccreary % (Auto) Eos % (Auto) Baso % (Auto) Lymph # (Auto) Mccreary # (Auto) Eos # (Auto) Baso # (Auto) Abs Immat Gran (auto) Absolute Neuts (auto) Absolute Nucleated RBC Nucleated RBC % (auto) Sodium 140 Potassium 4.2 Chloride 105 Carbon Dioxide 24 Anion Gap 15 BUN 15 Creatinine 1.04 Estim Creat Clear Calc 121.8 Estimated GFR > 60 Random Glucose 91 Estimat Average Glucose Hemoglobin A1c % Calcium 9.5 Magnesium 2.2 Total Bilirubin 2.1 H AST 17 ALT 25 Alkaline Phosphatase 77 Total Protein 7.2 Albumin 4.7 Triglycerides Cholesterol LDL Cholesterol, Calc HDL Cholesterol Vitamin B12 Folate TSH 0.55 Urine Color Urine Appearance Urine pH Ur Specific Walters Urine Protein Urine Glucose (UA) Urine Ketones Urine Blood Urine Nitrite Ur Leukocyte Esterase Urine RBC Urine WBC Ur Squamous Epith Cells Urine Bacteria Urine Opiates Screen Ur Barbiturates Screen Ur Phencyclidine Scrn Ur Amphetamines Screen U Benzodiazepines Scrn Urine Cocaine Screen U Marijuana (THC) Screen Ethyl Alcohol < 10 10/21/20 10/21/20 10/21/20 07:48 07:48 07:48 WBC RBC Hgb Hct MCV MCH MCHC RDW Plt Count MPV Immature Gran % (Auto) Neut % (Auto) Lymph % (Auto) Mccreary % (Auto) Eos % (Auto) Baso % (Auto) Lymph # (Auto) Mccreary # (Auto) Eos # (Auto) Baso # (Auto) Abs Immat Gran (auto) Absolute Neuts (auto) Absolute Nucleated RBC Nucleated RBC % (auto) Sodium Potassium Chloride Carbon Dioxide Anion Gap BUN Creatinine Estim Creat Clear Calc Estimated GFR Random Glucose Estimat Average Glucose 94 Hemoglobin A1c % 4.9 Calcium Magnesium Total Bilirubin AST ALT Alkaline Phosphatase Total Protein Albumin Triglycerides 63 Cholesterol 177 LDL Cholesterol, Calc 106 HDL Cholesterol 59 Vitamin B12 515 Folate 13.2 TSH Urine Color Urine Appearance Urine pH Ur Specific Walters Urine Protein Urine Glucose (UA) Urine Ketones Urine Blood Urine Nitrite Ur Leukocyte Esterase Urine RBC Urine WBC Ur Squamous Epith Cells Urine Bacteria Urine Opiates Screen Ur Barbiturates Screen Ur Phencyclidine Scrn Ur Amphetamines Screen U Benzodiazepines Scrn Urine Cocaine Screen U Marijuana (THC) Screen Ethyl Alcohol 10/21/20 07:48 WBC RBC Hgb Hct MCV MCH MCHC RDW Plt Count MPV Immature Gran % (Auto) Neut % (Auto) Lymph % (Auto) Mccreary % (Auto) Eos % (Auto) Baso % (Auto) Lymph # (Auto) Mccreary # (Auto) Eos # (Auto) Baso # (Auto) Abs Immat Gran (auto) Absolute Neuts (auto) Absolute Nucleated RBC Nucleated RBC % (auto) Sodium Potassium Chloride Carbon Dioxide Anion Gap BUN Creatinine Estim Creat Clear Calc Estimated GFR Random Glucose Estimat Average Glucose Hemoglobin A1c % Calcium Magnesium Total Bilirubin AST ALT Alkaline Phosphatase Total Protein Albumin Triglycerides Cholesterol LDL Cholesterol, Calc HDL Cholesterol Vitamin B12 Folate TSH 1.22 Urine Color Urine Appearance Urine pH Ur Specific Walters Urine Protein Urine Glucose (UA) Urine Ketones Urine Blood Urine Nitrite Ur Leukocyte Esterase Urine RBC Urine WBC Ur Squamous Epith Cells Urine Bacteria Urine Opiates Screen Ur Barbiturates Screen Ur Phencyclidine Scrn Ur Amphetamines Screen U Benzodiazepines Scrn Urine Cocaine Screen U Marijuana (THC) Screen Ethyl Alcohol DS: Summary Hospital Course Hospital Course: Mr. Porter is a 30 year-old male with hx of MDD for past year who was brought to [facility] ED by mother on 10/18/2020 after he disclose suicidal ideation with plan to shoot himself with holli that he owns. This is his first inpatient admission. In ED, his utox was negative. Laboratory data CBC, CMP, unremarkable. On the unit, pt presents as tearful, anxious. He reports that depression and anxiety worsened after he ended relationship of 4 years about one and half years ago. He reports it was a mutual decision but his life drastically change to more social isolation. 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 He reports feeling anxious, depressed, empty, loss in life, unclear of his purpose. He ruminates about not being in a serious relationship and ideas of having a family by now. He describes difficulty falling asleep. Waking up with palpitations and fear of dying. 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 He reports he notes low frustration tolerance and last Monday lashing out at father, which is not his usual nor a reflection of their relationship. He reported going home, feeling void in his chest. He talked with his sister who suggested he was very anxious and overwhelmed. He reported that something clicked and he couldn't hold it anymore. He reports he went to his parents house. He had flitting thoughts of suicide but adamantly denies intent but knew he needed help. He has never been on medications nor in psychiatric treatment. Past Psychiatric History: Inpatient: none OP: none Past medication trials: none Suicide attempts: none HOSPITAL COURSE On the unit, Mr. Porter was admitted on CV and placed on 15 minutes checks for safety. He endorse depressed mood, anxious mood, feeling of not having accomplished much in life, lonely, passive suicidal ideation. He reported pacing, feeling restless, poor appetite and poor sleep. He denied suicidal ideation. He denies hx of VH/AH. No signs of hypomania or liza nor hx of. After discussing risks, benefits and alternative treatment options, Mr. Porter agreed to start Lexapro for depression. He also agreed to start clonazepam 0.5mg po BID PRN for anxiety. Hi affect gradually brighten. He reported improved symptoms of depression and anxiety. He reported eating and sleeping better. He was increasingly more future oriented in that he agreed to continue OP psych treatment and was looking to see family. Collateral information gathered from both parents. 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 At time of discharge parents report that pt appeared in much improved mood. Family denied any safety concerns at times of discharge. Family retrieved all weapons from pt's house prior to discharge and stored them securely in their safe which pt does not have access to. Pt in agreement with this as well. There were no incidences of disruptive behaviors nor use of restraints. Time spent discussing smoking cessation with patient: 3 to 10 minutes Status at Discharge Cognitive/behavioral status at discharge: Pt denies SI/HI. He reports decreased symptoms of depression, affect is brighter. He is future oriented. No signs of aggression towards self or others were noted. Functional status at discharge: independent ambulation Overall status at discharge: patient is back to baseline Time Spent with Patient Time attestation: Total time spent providing and/or coordinating discharge services: Time spent: Greater than 30 minutes
== END 2020-10-23 12:55 | disposition home or self-care (01) | DRG 751 ==
LOC: HO.ED 19:55 → HO.PM5 22:34
PROVIDERS: Nurse Practitioner Primary Care; Admitting Provider Psychiatry & Neurology Psychiatry; Emergency Provider Emergency Medicine; Visit Provider Social Worker
DX: F32.1 Major depressive disorder, single episode, moderate (principal); R45.851 Suicidal ideations; F41.9 Anxiety disorder, unspecified; Z79.899 Other long term (current) drug therapy
CPT/HCPCS: 36415; 80053; 80061; 80307; 80320; 81001; 82607; 82746; 83036; 83735; 84443; 85025; 99285

== ENCOUNTER 2021-07-08 14:01 | Outpatient (REF) | payer OTHER, SELFPAY ==
[2021-07-08 15:17] LABS: COVID-19 Test Positive (Negative); IDNOW Serial# 16C4AD1C
== END 2021-07-08 14:02 | disposition home or self-care (01) ==
LOC: HO.LAB 14:01
PROVIDERS: Visit Provider Internal Medicine
DX: Z20.822 Contact with and (suspected) exposure to COVID-19 (principal)
CPT/HCPCS: 36415; 87635; C9803